=== PATIENT | female | born 1995 | race Two or more races ===

== ENCOUNTER 2018-11-03 14:53 | Emergency (ER) | payer SELFPAY ==
[~2018-11-03] VITALS: Ht 160 cm; Wt 62.1 kg
[2018-11-03 15:23] LABS: BILIRUBIN,URINE SMALL (NEG); CLARITY,URINE CLEAR; COLOR,URINE AMBER; NITRITE,URINE NEGATIVE (NEG); PH,URINE 5.5; PROTEIN,URINE 30 mg/dL (NEG-TRACE); UROBILINOGEN,URINE 0.2 mg/dL (0.2 mg/dL)
[2018-11-03 15:31] LABS: BACTERIA,URINE MODERATE /HPF (0-FEW); SQUAMOUS EPITHELIAL CELL,UR MANY /LPF; WBC,URINE TNTC /HPF (0-4)
[2018-11-03] MEDS ORDERED: ACETAMINOPHEN 500 MG TABLET PO ONE (15:45)
--- NOTE | 2018-11-03 15:58 | PHYS DOC ---
Past Medical History Past Medical History: No Pertinent History Past Surgical History: No Surgical History Alcohol Use: None Drug Use: None Adult General Chief Complaint Chief Complaint: VAGINAL BLEEDING HPI HPI Patient is a 23 year old female who presents to the emergency Department today with complaints of dark red vaginal bleeding and pelvic cramping that started today. Patient states she was diagnosed as being last week at [facility]. Her last menstrual period was on September 21, 2018. According to LMP her EDC is 06/28/19. She is 2, para 1, 0. She states that she has only used 1 pad today. She denies any upper abdominal pain, nausea, vomiting, back pain, fever, dysuria, hematuria, or irregular vaginal discharge prior to the onset of vaginal bleeding. Currently, she reports her pelvic pain is an 8 out of 10 on the pain scale and describes it as cramping. She has not taken any medications for relief of pain prior to arrival. Review of Systems Review of Systems Constitutional: Denies fever or chills [] Eyes: Denies redness, or eye pain [] HENT: Denies nasal congestion or sore throat [] Respiratory: Denies cough or shortness of breath [] Cardiovascular: No additional information not addressed in HPI [] GI: Denies nausea, vomiting, or diarrhea [] : Denies dysuria or hematuria; see HPI[] Musculoskeletal: Denies back pain or joint pain [] Integument: Denies rash or skin lesions [] Neurologic: Denies headache, focal weakness or sensory changes [] Complete systems were reviewed and found to be within normal limits, except as documented in this note. Current Medications Current Medications Current Medications Medications (Trade) Dose Ordered Sig/[facility] Start Time Stop Time Status Last Admin Dose Admin Acetaminophen (Tylenol) 1,000 mg 1X ONCE 11/03/18 15:45 11/03/18 15:55 DC 11/03/18 16:23 1,000 MG Allergies Allergies Allergies Coded Allergies Type Severity Reaction Last Updated Verified No Known Drug Allergies 11/03/18 No Physical Exam Physical Exam Constitutional: Well developed, well nourished, no acute distress, non-toxic appearance. [] HENT: Normocephalic, atraumatic, bilateral external ears normal, nose normal. [] Eyes: conjunctiva normal, no discharge. [] Neck: Normal range of motion, no stridor. [] Cardiovascular:Heart rate regular rhythm Lungs & Thorax: Respirations even and unlabored, no retractions, no respiratory distress Pelvic Exam: Nut Threader shashi Cota RN Abdomen: Nontender External Genitalia: Normal Skin Speculum: Normal vaginal mucosa, dark bloody cervical discharge, OS closed Skin: Warm, dry, no erythema, no rash. [] Extremities: No cyanosis, ROM intact, no edema. [] Neurologic: Alert and oriented X 3, no focal deficits noted. [] Psychologic: Affect normal, judgement normal, mood normal. [] Current Patient Data Vital Signs Vital Signs Date Time Temp Pulse Resp B/P (MAP) Pulse Ox O2 Delivery O2 Flow Rate FiO2 11/03/18 15:16 98.4 66 18 119/69 (86) 99 Room Air 98.4 Lab Values Laboratory Tests Test 11/03/18 15:06 11/03/18 15:09 11/03/18 15:30 Urine Collection Type Unknown Urine Color Joaquina Urine Clarity Clear Urine pH 5.5 Urine Specific [place] >=1.030 Urine Protein 30 mg/dL (NEG-TRACE) Urine Glucose (UA) Negative mg/dL (NEG) Urine Ketones (Stick) Trace mg/dL (NEG) Urine Blood Large (NEG) Urine Nitrite Negative (NEG) Urine Bilirubin Small (NEG) Urine Urobilinogen Dipstick 0.2 mg/dL (0.2 mg/dL) Urine Leukocyte Esterase Moderate (NEG) Urine RBC 11-20 /HPF (0-2) Urine WBC Tntc /HPF (0-4) Urine Squamous Epithelial Cells Many /LPF Urine Bacteria Moderate /HPF (0-FEW) Urine Mucus Marked /LPF POC Urine HCG, Qualitative Hcg negative (Negative) Maternal Serum HCG Beta Subunit 3 mIU/mL (0-5) EKG EKG [] Radiology/Procedures Radiology/Procedures PROCEDURE: OB <14 WKS W/TV Examination: Obstetric ultrasound less than 14 weeks HISTORY: History of bleeding, positive test COMPARISON: None available FINDINGS: The uterus measures 8.0 x 6.0 x 5.0 cm. The right ovary measures 3.4 x 2.0 x 1.9 cm. The left ovary measures 3.1 x 2.1 x 2.0 cm. Blood flow identified in the right and left ovaries. Intrauterine gestational sac is not identified. Endometrium measures 6.3 mm in thickness. IMPRESSION: Intrauterine gestational sac is not identified. Differential includes very early , failed first trimester or ectopic . An ectopic gestational sac is not evident. Close interval follow-up examination and follow-up serial quantitative beta-hCG levels is recommended. [] Course & Med Decision Making Course & Med Decision Making Pertinent Labs and Imaging studies reviewed. (See chart for details) dx: vaginal bleeding Urine HCG negative, beta hcg level 3, blood type A+ PROCEDURE: OB <14 WKS W/TV Intrauterine gestational sac is not identified. An ectopic gestational sac is not evident. Pt was encouraged to follow up with PCP or ObGyn for further evaluation of vaginal bleeding, advised that urine testing was negative today and HCG level was 3 Patient verbalized an understanding of home care, medications, follow-up, and return to ED instructions and was in agreement with the plan of care. Dragon Disclaimer Dragon Disclaimer This electronic medical record was generated, in whole or in part, using a voice recognition dictation system. Departure Departure Impression: Primary Impression: Vaginal bleeding Disposition: 01 HOME, SELF-CARE Condition: STABLE Referrals: NO PCP (PCP) Patient Instructions: Uterine Bleeding, Dysfunctional, [id number] Additional Instructions: Tylenol or ibuprofen as needed for cramps. Follow up with your OBGyn or PCP for further treatment and evaluation. Return to the ER if symptoms worsen. F[employer]ED [employer] Nov 03, 2018 15:58
--- NOTE | 2018-11-03 16:41 | RAD ---
Examination: Obstetric ultrasound less than 14 weeks HISTORY: History of bleeding, positive test COMPARISON: None available FINDINGS: The uterus measures 8.0 x 6.0 x 5.0 cm. The right ovary measures 3.4 x 2.0 x 1.9 cm. The left ovary measures 3.1 x 2.1 x 2.0 cm. Blood flow identified in the right and left ovaries. Intrauterine gestational sac is not identified. Endometrium measures 6.3 mm in thickness. IMPRESSION: Intrauterine gestational sac is not identified. Differential includes very early , failed first trimester or ectopic . An ectopic gestational sac is not evident. Close interval follow-up examination and follow-up serial quantitative beta-hCG levels is recommended. Electronically signed by: Sim Pino MD (11/03/2018 4:38 PM) [id number]
[2018-11-03 16:52] VITALS: BP 114/67
== END 2018-11-03 17:14 | disposition home or self-care (01) ==
LOC: ER 14:53
DX: N93.9 Abnormal uterine and vaginal bleeding, unspecified (principal)
CPT/HCPCS: 36415; 76801; 76817; 81001; 81025; 84702; 86900; 86901; 87086; 99285